=== PATIENT | male | born 1960 | race Caucasian/White ===

== ENCOUNTER 2021-05-04 03:29 | Emergency (ER) | payer OTHER ==
[~2021-05-04] VITALS: Ht 172.7 cm; Wt 86.2 kg
[~2021-05-04 03:29] MED LIST: AMIT25; AMOCLA875 PO; ARIP10 PO; BENZ2; CYCL10; CYCL10 PO; DOXY100; DULO30; Flonase 0.05% N16 GM; HYDACE10B; KETO10 PO; MAGCIT300 PO; METH10; OXYACE5T PO; OXYC10ER; OXYC10ER PO; OXYC20ER; OXYC20ER PO; PARO25; Prednisone10 MG PO; Pseudoephedrine30 MG PO; QUET100; QUET200; QUET200 PO; SENNP PO; VALD10
== END 2021-05-04 05:03 | disposition home or self-care (01) ==
LOC: ER 03:29
DX: H16.8 Other keratitis (principal); F17.200 Nicotine dependence, unspecified, uncomplicated; Z88.8 Allergy status to other drugs, medicaments and biological substances; Z88.1 Allergy status to other antibiotic agents; Z88.5 Allergy status to narcotic agent
CPT/HCPCS: 99283; A9270

== ENCOUNTER 2021-06-04 19:42 | Inpatient (IN) | payer OTHER ==
[~2021-06-04] VITALS: Ht 172.7 cm; Wt 79.7 kg
[2021-06-04 20:36] LABS: BASOPHILS ABSOLUTE AUTO 0.04 K/mm3 (0.00-0.23); BASOPHILS PERCENT AUTO 1 % (0-2); EOSINOPHILS ABSOLUTE AUTO 0.29 K/mm3 (0.00-0.68); EOSINOPHILS PERCENT AUTO 3 % (0-6); Hematocrit 43.2 % (37.0-53.0); Hemoglobin 14.9 g/dL (13.5-17.5); IMMATURE GRAN ABSOLUTE AUTO 0.02 K/mm3 (0.00-0.10); IMMATURE GRAN PERCENT AUTO 0 % (0-1); LYMPHOCYTES ABSOLUTE AUTO 2.35 K/mm3 (0.84-5.20); LYMPHOCYTES PERCENT AUTO 28 % (21-46); MONOCYTES ABSOLUTE AUTO 0.81 K/mm3 (0.16-1.47); MONOCYTES PERCENT AUTO 10 % (4-13); Mean Corpuscular HGB Conc 34.5 g/dL (31.5-36.5); Mean Corpuscular Volume 96 fL (80-100); Mean Platelet Volume 8.5 fL (9.1-12.4); NEUTROPHILS PERCENT AUTO 58 % (41-73); Platelet Count 253 K/mm3 (150-400); RDW Coefficient Variation 12.6 % (11.7-14.2); RDW Standard Deviation 45.2 fL (35.1-46.3); Red Blood Cell Count 4.52 M/mm3 (4.30-5.90); White Blood Cell Count 8.41 K/mm3 (4.00-11.30)
[2021-06-04 20:53] LABS: Alanine Aminotransfer (ALT/SGP 32 U/L (12-78); Albumin, Blood 3.7 g/dL (3.4-5.0); Albumin/Globulin Ratio 1.1 (0.8-1.8); Alk Phos 102 U/L (50-136); Anion Gap 5 mmol/L (6-16); Aspartate Aminotrans (AST/SGOT 29 U/L (12-37); Bilirubin, Total 0.9 mg/dL (0.1-1.0); Blood Urea Nitrogen 14 mg/dL (8-24); Bun/Creatinine Ratio 17.7 (12.0-20.0); CO2, Blood 26 mmol/L (21-32); Calcium, Blood 8.9 mg/dL (8.5-10.1); Chloride, Blood 108 mmol/L (98-108); Creatinine, Blood 0.79 mg/dL (0.60-1.20); Globulin, Blood 3.5 g/dL (2.2-4.0); Glomerular Filtration Rate >60 (60-); Glucose, Blood 91 mg/dL (70-99); Potassium, Blood 3.7 mmol/L (3.5-5.5); Sodium, Blood 139 mmol/L (136-145); Total Protein, Blood 7.2 g/dL (6.4-8.2)
[2021-06-05 06:14] LABS: SARS-Cov-2 (COVID-19) PCR, MMC NEGATIVE (NEGATIVE)
--- NOTE | 2021-06-05 06:21 | NUR ---
PT ARRIVED TO UNIT AT 0115. PT IS A/OX3. ABLE TO MAKE HIS NEEDS KNOWN. ORIENTED TO ROOM, CALL LIGHT, TV, NPO STATUS. 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 PER PT, HE WAS SEEN AT AN URGENT CARE TODAY AND WAS TOLD TO BE EVALUATED AT ED FOR INFECTION TO RT FOOT. HERE FOR OSTEOMYELITIS TO RIGHT FOOT/RT GRT TOE. RT FOOT IS RED, SWOLLEN, WARM TO TOUCH. 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 TOLERATING IV ABX WELL. USES URINAL. REPORTS LAST BM WAS 06/04/21. DENIED ANY N/V. BT'S POS. IS A SMOKER, REPORTS LAST CIGAR WAS AROUND 1930 ON 06/04/21. DOES NOT WANT NICOTINE PATCH. COVID NEG, VACCINATED APPROX 2 MO AGO. HAS APPT WITH FINANCIAL SALES CONSULTANT AND PSYCH EITHER 06/06 OR 06/07. PT SAYS HE WILL CALL BOTH PROVIDER OFFICES TO INFORM HE IS INPATIENT.
[2021-06-05 08:32] LABS: BASOPHILS ABSOLUTE AUTO 0.05 K/mm3 (0.00-0.23); BASOPHILS PERCENT AUTO 1 % (0-2); EOSINOPHILS ABSOLUTE AUTO 0.33 K/mm3 (0.00-0.68); EOSINOPHILS PERCENT AUTO 5 % (0-6); Hematocrit 42.4 % (37.0-53.0); Hemoglobin 14.5 g/dL (13.5-17.5); IMMATURE GRAN ABSOLUTE AUTO 0.01 K/mm3 (0.00-0.10); IMMATURE GRAN PERCENT AUTO 0 % (0-1); LYMPHOCYTES ABSOLUTE AUTO 1.67 K/mm3 (0.84-5.20); LYMPHOCYTES PERCENT AUTO 26 % (21-46); MONOCYTES ABSOLUTE AUTO 0.79 K/mm3 (0.16-1.47); MONOCYTES PERCENT AUTO 12 % (4-13); Mean Corpuscular HGB 32.9 pg (26.0-34.0); Mean Corpuscular HGB Conc 34.2 g/dL (31.5-36.5); Mean Corpuscular Volume 96 fL (80-100); Mean Platelet Volume 8.9 fL (9.1-12.4); NEUTROPHILS PERCENT AUTO 56 % (41-73); Platelet Count 242 K/mm3 (150-400); RDW Coefficient Variation 12.6 % (11.7-14.2); RDW Standard Deviation 45.3 fL (35.1-46.3); Red Blood Cell Count 4.41 M/mm3 (4.30-5.90); White Blood Cell Count 6.45 K/mm3 (4.00-11.30)
[2021-06-05 09:00] LABS: Alanine Aminotransfer (ALT/SGP 25 U/L (12-78); Albumin, Blood 2.9 g/dL (3.4-5.0); Albumin/Globulin Ratio 0.9 (0.8-1.8); Alk Phos 92 U/L (50-136); Anion Gap 3 mmol/L (6-16); Aspartate Aminotrans (AST/SGOT 23 U/L (12-37); Bilirubin, Total 1.1 mg/dL (0.1-1.0); Blood Urea Nitrogen 12 mg/dL (8-24); CO2, Blood 26 mmol/L (21-32); Calcium, Blood 8.3 mg/dL (8.5-10.1); Chloride, Blood 110 mmol/L (98-108); Creatinine, Blood 0.86 mg/dL (0.60-1.20); Globulin, Blood 3.3 g/dL (2.2-4.0); Glomerular Filtration Rate >60 (60-); Glucose, Blood 94 mg/dL (70-99); Potassium, Blood 3.8 mmol/L (3.5-5.5); Sodium, Blood 139 mmol/L (136-145); Total Protein, Blood 6.2 g/dL (6.4-8.2)
--- NOTE | 2021-06-05 10:12 | NUR ---
DR. SCHMITZ ROUNDED ON PT, RECOMMENDED DR. ARAGON CONSULT. CONSULT CALLED TO DR. ARAGON'S ANSWERING MACHINE. DRESSING PLACED OVER RIGHT GREAT TOE SURGICAL SITE. WILL AWAIT RECOMMENDATION FROM DR. ARAGON. WILL CONTINUE TO MONITOR.
[2021-06-05] MEDS ORDERED: MELO7.5 PO (10:29)
[2021-06-05] MEDS ORDERED: TRAM50 PO (10:32)
[2021-06-05] MEDS ORDERED: Prozac20 MG PO (10:33)
[2021-06-05] MEDS ORDERED: Prozac40 MG PO (16:41)
--- NOTE | 2021-06-05 18:04 | NUR ---
DISCHARGE PT PROVIDED WITH WRITTEN AND VERBAL DISCHARGE INSTRUCTIONS, HE REPORTED UNDERSTANDING. 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 BOYER DECIDES PT NEEDS TO HAVE SURGERY. PT ALSO EDUCATED TO REST AND ELEVATE HIS RLE AND TO AVOID ACTIVITIES SUCH WORKING IN HIS SHOP. PT REPORTED UNDERSTANDING. PT ARRANGED RIDE HOME WITH TAXI. PT ESCORTED OUT IN W/C.
== END 2021-06-05 17:30 | disposition home or self-care (01) | DRG 540 ==
LOC: ER 19:42 → SURS 23:29 → ER 06-05 01:22 → SURS 06-05 01:25
PROVIDERS: Emergency Medicine; ADMIT Internal Medicine
DX: M86.171 Other acute osteomyelitis, right ankle and foot (principal); L03.115 Cellulitis of right lower limb; Z20.822 Contact with and (suspected) exposure to COVID-19; Z23 Encounter for immunization; F31.9 Bipolar disorder, unspecified; F41.9 Anxiety disorder, unspecified; G47.00 Insomnia, unspecified; F25.9 Schizoaffective disorder, unspecified; Z89.421 Acquired absence of other right toe(s); Z88.5 Allergy status to narcotic agent; Z88.6 Allergy status to analgesic agent; Z88.8 Allergy status to other drugs, medicaments and biological substances; Z98.890 Other specified postprocedural states; Z79.891 Long term (current) use of opiate analgesic; Z79.899 Other long term (current) drug therapy
CPT/HCPCS: 36415; 73630; 73701; 80053; 85025; 85651; 86140; 87070; 87075; 87077; 87186; 87205; 90686; 96365; 99285-25; A9270; J2543; J3370; J7030; J7050; Q9967; U0004

== ENCOUNTER → 2021-06-06 | Outpatient (CLI) | payer OTHER ==
[~2021-06-06] MED LIST changes: +MELO7.5 PO; +Prozac20 MG PO; +Prozac40 MG PO; +TRAM50 PO
== END ==
LOC: LAB SHORT 11:56
DX: Z48.89 Encounter for other specified surgical aftercare (principal); L03.119 Cellulitis of unspecified part of limb; L08.9 Local infection of the skin and subcutaneous tissue, unspecified
CPT/HCPCS: 87070; 87075; 87205

== ENCOUNTER → 2021-11-11 | Outpatient (CLI) | payer OTHER ==
[2021-11-11 10:06] LABS: BASOPHILS ABSOLUTE AUTO 0.06 K/mm3 (0.00-0.23); BASOPHILS PERCENT AUTO 1 % (0-2); EOSINOPHILS ABSOLUTE AUTO 0.51 K/mm3 (0.00-0.68); EOSINOPHILS PERCENT AUTO 8 % (0-6); Hematocrit 43.7 % (37.0-53.0); Hemoglobin 14.8 g/dL (13.5-17.5); IMMATURE GRAN ABSOLUTE AUTO 0.01 K/mm3 (0.00-0.10); IMMATURE GRAN PERCENT AUTO 0 % (0-1); LYMPHOCYTES ABSOLUTE AUTO 1.69 K/mm3 (0.84-5.20); LYMPHOCYTES PERCENT AUTO 28 % (21-46); MONOCYTES ABSOLUTE AUTO 0.77 K/mm3 (0.16-1.47); MONOCYTES PERCENT AUTO 13 % (4-13); Mean Corpuscular HGB 32.6 pg (26.0-34.0); Mean Corpuscular HGB Conc 33.9 g/dL (31.5-36.5); Mean Corpuscular Volume 96 fL (80-100); Mean Platelet Volume 8.7 fL (9.1-12.4); NEUTROPHILS ABSOLUTE AUTO 3.07 K/mm3 (1.96-9.15); NEUTROPHILS PERCENT AUTO 50 % (41-73); Platelet Count 221 K/mm3 (150-400); RDW Coefficient Variation 12.9 % (11.7-14.2); RDW Standard Deviation 45.7 fL (35.1-46.3); Red Blood Cell Count 4.54 M/mm3 (4.30-5.90); White Blood Cell Count 6.11 K/mm3 (4.00-11.30)
[2021-11-11 10:21] LABS: Alanine Aminotransfer (ALT/SGP 21 U/L (12-78); Albumin, Blood 3.4 g/dL (3.4-5.0); Albumin/Globulin Ratio 1.1 (0.8-1.8); Alk Phos 92 U/L (40-126); Anion Gap Unable to Calculate mmol/L (6-16); Aspartate Aminotrans (AST/SGOT 11 U/L (12-37); Bilirubin, Total 0.3 mg/dL (0.1-1.0); Blood Urea Nitrogen 18 mg/dL (8-24); Bun/Creatinine Ratio 18.6 (12.0-20.0); CO2, Blood 26 mmol/L (21-32); Calcium, Blood 8.4 mg/dL (8.5-10.1); Chloride, Blood 100 mmol/L (98-108); Creatinine, Blood 0.97 mg/dL (0.60-1.20); Globulin, Blood 3.1 g/dL (2.2-4.0); Glomerular Filtration Rate >60 (60-); Glucose, Blood 129 mg/dL (70-99); Potassium, Blood 3.4 mmol/L (3.5-5.5); Sodium, Blood 120 mmol/L (136-145); Total Protein, Blood 6.5 g/dL (6.4-8.2)
[2021-11-13 16:11] LABS: ANTI-CENTROMERE B ANTIBODIES <0.2 AI (0.0-0.9); ANTI-DNA (DS) AB QN <1 IU/mL (0-9); ANTI-JO-1 <0.2 AI (0.0-0.9); ANTICHROMATIN ANTIBODIES <0.2 AI (0.0-0.9); ANTISCLERODERMA-70 ANTIBODIES <0.2 AI (0.0-0.9); RNP ANTIBODIES 0.8 AI (0.0-0.9); SJOGREN'S ANTI-SS-A <0.2 AI (0.0-0.9); SJOGREN'S ANTI-SS-B <0.2 AI (0.0-0.9); SMITH ANTIBODIES <0.2 AI (0.0-0.9)
== END ==
LOC: LAB EV 10:00 → LAB SHORT 10:00
PROVIDERS: General Practice
DX: R20.2 Paresthesia of skin (principal); Z79.899 Other long term (current) drug therapy
CPT/HCPCS: 80053; 82607; 82746; 83036; 85025; 85651

== ENCOUNTER 2022-01-06 06:14 | Emergency (ER) | payer OTHER ==
[~2022-01-06] VITALS: Ht 172.7 cm; Wt 86.2 kg
[2022-01-06] MEDS ORDERED: NEURONTIN300 MG PO (06:38)
== END 2022-01-06 08:09 | disposition home or self-care (01) ==
LOC: ER 06:14
DX: M54.12 Radiculopathy, cervical region (principal); Z87.891 Personal history of nicotine dependence; Z79.899 Other long term (current) drug therapy
CPT/HCPCS: 99283

== ENCOUNTER 2022-01-21 02:35 | Emergency (ER) | payer OTHER ==
[~2022-01-21] VITALS: Ht 172.7 cm; Wt 86.2 kg
[~2022-01-21 02:35] MED LIST changes: +NEURONTIN300 MG PO
== END 2022-01-21 04:39 | disposition home or self-care (01) ==
LOC: ER 02:35
DX: R20.0 Anesthesia of skin (principal); F41.9 Anxiety disorder, unspecified; F17.200 Nicotine dependence, unspecified, uncomplicated; Z88.5 Allergy status to narcotic agent; Z88.0 Allergy status to penicillin; Z88.8 Allergy status to other drugs, medicaments and biological substances; Z79.899 Other long term (current) drug therapy
CPT/HCPCS: J1100; J1885

== ENCOUNTER 2022-01-24 04:27 | Emergency (ER) | payer OTHER ==
[~2022-01-24] VITALS: Ht 172.7 cm; Wt 81.7 kg
== END 2022-01-24 05:43 | disposition home or self-care (01) ==
LOC: ER 04:27
DX: S60.458A Superficial foreign body of other finger, initial encounter (principal); F17.200 Nicotine dependence, unspecified, uncomplicated; W45.8XXA Other foreign body or object entering through skin, initial encounter; Z88.0 Allergy status to penicillin; Z88.5 Allergy status to narcotic agent; Z88.8 Allergy status to other drugs, medicaments and biological substances; Z79.899 Other long term (current) drug therapy
CPT/HCPCS: 99283

== ENCOUNTER 2022-02-09 19:34 | Emergency (ER) | payer OTHER ==
[~2022-02-09] VITALS: Ht 172.7 cm; Wt 81.7 kg
== END 2022-02-09 19:56 | disposition home or self-care (01) ==
LOC: ER 19:34
DX: Z76.0 Encounter for issue of repeat prescription (principal); G56.00 Carpal tunnel syndrome, unspecified upper limb; F17.200 Nicotine dependence, unspecified, uncomplicated; Z79.899 Other long term (current) drug therapy; Z88.5 Allergy status to narcotic agent; Z88.0 Allergy status to penicillin; Z88.8 Allergy status to other drugs, medicaments and biological substances
CPT/HCPCS: J1885

== ENCOUNTER 2022-02-20 19:12 | Emergency (ER) | payer OTHER ==
[~2022-02-20] VITALS: Ht 172.7 cm; Wt 77.1 kg
[2022-02-21] MEDS ORDERED: HYDR1TAB94 PO (05:46)
== END 2022-02-20 21:52 | disposition home or self-care (01) ==
LOC: ER 19:12
DX: H57.13 Ocular pain, bilateral (principal); Z79.899 Other long term (current) drug therapy; Z53.21 Procedure and treatment not carried out due to patient leaving prior to being seen by health care provider
CPT/HCPCS: 99281

== ENCOUNTER 2022-02-21 04:22 | Emergency (ER) | payer OTHER ==
[~2022-02-21] VITALS: Ht 172.7 cm; Wt 81.7 kg
[2022-02-21] MEDS ORDERED: HYDR1TAB94 PO (05:46)
== END 2022-02-21 06:45 | disposition home or self-care (01) ==
LOC: ER 04:22
DX: S70.02XA Contusion of left hip, initial encounter (principal); F17.290 Nicotine dependence, other tobacco product, uncomplicated; W23.0XXA Caught, crushed, jammed, or pinched between moving objects, initial encounter
CPT/HCPCS: 99283; A9270

== ENCOUNTER 2022-03-11 21:29 | Emergency (ER) | payer OTHER ==
[~2022-03-11] VITALS: Ht 172.7 cm; Wt 81.7 kg
[~2022-03-11 21:29] MED LIST changes: +HYDR1TAB94 PO
== END 2022-03-12 03:42 | disposition home or self-care (01) ==
LOC: ER 21:29
DX: R07.9 Chest pain, unspecified (principal); M79.673 Pain in unspecified foot; F17.210 Nicotine dependence, cigarettes, uncomplicated; Z88.5 Allergy status to narcotic agent; Z88.0 Allergy status to penicillin; Z88.8 Allergy status to other drugs, medicaments and biological substances
CPT/HCPCS: 93005; 93010; 99282-25

== ENCOUNTER 2022-03-15 00:35 | Emergency (ER) | payer OTHER ==
[~2022-03-15] VITALS: Ht 172.7 cm; Wt 81.7 kg
[2022-03-15] MEDS ORDERED: IBUP600 PO (06:20)
== END 2022-03-15 06:37 | disposition home or self-care (01) ==
LOC: ER 00:35
DX: M79.18 Myalgia, other site (principal); F17.290 Nicotine dependence, other tobacco product, uncomplicated; Z88.0 Allergy status to penicillin; Z88.5 Allergy status to narcotic agent; Z88.8 Allergy status to other drugs, medicaments and biological substances
CPT/HCPCS: A9270

== ENCOUNTER 2022-03-18 08:15 | Emergency (ER) | payer OTHER ==
[~2022-03-18] VITALS: Ht 172.7 cm; Wt 74.8 kg
[~2022-03-18 08:15] MED LIST changes: +IBUP600 PO
[2022-03-18] MEDS ORDERED: Neurontin 100100 MG PO (09:13)
== END 2022-03-18 09:56 | disposition home or self-care (01) ==
LOC: ER 08:15
DX: B35.3 Tinea pedis (principal); L03.115 Cellulitis of right lower limb; F17.290 Nicotine dependence, other tobacco product, uncomplicated; Z88.0 Allergy status to penicillin; Z88.5 Allergy status to narcotic agent; Z88.8 Allergy status to other drugs, medicaments and biological substances; Z59.00 Homelessness unspecified
CPT/HCPCS: 99282

== ENCOUNTER 2022-03-25 10:15 | Emergency (ER) | payer OTHER ==
[~2022-03-25 10:15] MED LIST changes: +Neurontin 100100 MG PO
[2022-03-26] MEDS ORDERED: CYCL10 PO (06:00)
== END 2022-03-25 11:04 | disposition left against medical advice (07) ==
LOC: ER 10:15
DX: Z53.21 Procedure and treatment not carried out due to patient leaving prior to being seen by health care provider (principal)

== ENCOUNTER 2022-03-26 03:07 | Emergency (ER) | payer OTHER ==
[~2022-03-26] VITALS: Ht 172.7 cm; Wt 81.7 kg
[2022-03-26] MEDS ORDERED: CYCL10 PO (06:00)
== END 2022-03-26 06:00 | disposition home or self-care (01) ==
LOC: ER 03:07
DX: M25.511 Pain in right shoulder (principal); X58.XXXA Exposure to other specified factors, initial encounter; F17.210 Nicotine dependence, cigarettes, uncomplicated
CPT/HCPCS: 73030; A9270

== ENCOUNTER 2022-04-03 02:56 | Emergency (ER) | payer OTHER ==
[~2022-04-03] VITALS: Ht 172.7 cm; Wt 81.7 kg
== END 2022-04-03 04:38 | disposition home or self-care (01) ==
LOC: ER 02:56
DX: S16.1XXA Strain of muscle, fascia and tendon at neck level, initial encounter (principal); X58.XXXA Exposure to other specified factors, initial encounter; G56.01 Carpal tunnel syndrome, right upper limb; F17.210 Nicotine dependence, cigarettes, uncomplicated; Z88.0 Allergy status to penicillin; Z88.5 Allergy status to narcotic agent; Z88.8 Allergy status to other drugs, medicaments and biological substances; Z79.899 Other long term (current) drug therapy
CPT/HCPCS: A9270

== ENCOUNTER 2022-06-13 07:40 | Day surgery (SDC) | payer OTHER ==
[~2022-06-13] VITALS: Ht 172.7 cm; Wt 71.3 kg
--- NOTE | 2022-06-13 09:16 | NUR ---
06/13/22 0916 Yolanda Figueroa PT GIVEN RELAXING MEDICATION PER DR. SAGASTUME. VS STABLE THROUGHOUT. PT TOLERATED WELL.
--- NOTE | 2022-06-13 12:28 | NUR ---
06/13/22 1228 Nathan Roberson PT WAS REPEATEDLY INSTRUCTED NO TO BEAR WEIGHT WITH OPERATIVE WRIST, YET HE WAS OBSERVED SEVERAL TIMES BEARING WIEGHT WITH OPERATIVE WRIST.
== END 2022-06-13 10:20 | disposition home or self-care (01) ==
LOC: ORSCSDS 07:40
PROVIDERS: Orthopaedic Surgery
PROC: 01N50ZZ Release Median Nerve, Open Approach (ICD-10-PCS; principal; 2022-06-13 09:00)
DX: G56.03 Carpal tunnel syndrome, bilateral upper limbs (principal); K21.9 Gastro-esophageal reflux disease without esophagitis; J45.909 Unspecified asthma, uncomplicated; J44.9 Chronic obstructive pulmonary disease, unspecified; Z87.891 Personal history of nicotine dependence
CPT/HCPCS: J2250; J3010; J7040; J7120

== ENCOUNTER 2022-09-07 01:12 | Emergency (ER) | payer OTHER ==
[~2022-09-07] VITALS: Ht 170.2 cm; Wt 65.8 kg
[2022-09-07] MEDS ORDERED: POLYTRIM EYE DR10 M1 BOTHEYES (01:30)
== END 2022-09-07 02:21 | disposition home or self-care (01) ==
LOC: ER 01:12
DX: H10.9 Unspecified conjunctivitis (principal); F17.290 Nicotine dependence, other tobacco product, uncomplicated; Z88.0 Allergy status to penicillin; Z88.5 Allergy status to narcotic agent; Z88.8 Allergy status to other drugs, medicaments and biological substances
CPT/HCPCS: A9270

== ENCOUNTER 2022-09-08 20:23 | Emergency (ER) | payer OTHER ==
[~2022-09-08] VITALS: Ht 172.7 cm; Wt 77.1 kg
[~2022-09-08 20:23] MED LIST changes: +POLYTRIM EYE DR10 M1 BOTHEYES
== END 2022-09-08 22:18 | disposition home or self-care (01) ==
LOC: ER 20:23
DX: S80.01XA Contusion of right knee, initial encounter (principal); S83.91XA Sprain of unspecified site of right knee, initial encounter; W51.XXXA Accidental striking against or bumped into by another person, initial encounter; F17.210 Nicotine dependence, cigarettes, uncomplicated; Z88.0 Allergy status to penicillin; Z88.5 Allergy status to narcotic agent; Z88.8 Allergy status to other drugs, medicaments and biological substances; Z79.899 Other long term (current) drug therapy
CPT/HCPCS: 73562-RT; J1885

== ENCOUNTER 2022-09-21 05:50 | Emergency (ER) | payer OTHER ==
[~2022-09-21] VITALS: Ht 182.9 cm; Wt 61.2 kg
[~2022-09-21 05:50] MED LIST changes: +LIDO700A20 TOP
[2022-09-21] MEDS ORDERED: METPRE4DP PO (06:32)
== END 2022-09-21 06:41 | disposition home or self-care (01) ==
LOC: ER 05:50
DX: M54.12 Radiculopathy, cervical region (principal)
CPT/HCPCS: J1885; J7512

== ENCOUNTER 2022-10-12 13:16 | Emergency (ER) | payer OTHER ==
[~2022-10-12] VITALS: Ht 172.7 cm; Wt 77.1 kg
[~2022-10-12 13:16] MED LIST changes: +METPRE4DP PO
[2022-10-12] MEDS ORDERED: CYCL10 PO (14:08)
== END 2022-10-12 14:08 | disposition home or self-care (01) ==
LOC: ER 13:16
DX: Z76.0 Encounter for issue of repeat prescription (principal); F17.210 Nicotine dependence, cigarettes, uncomplicated; Z88.1 Allergy status to other antibiotic agents; Z88.5 Allergy status to narcotic agent; Z88.8 Allergy status to other drugs, medicaments and biological substances; Z79.899 Other long term (current) drug therapy
CPT/HCPCS: 99281

== ENCOUNTER 2022-10-25 08:31 | Emergency (ER) | payer OTHER ==
[~2022-10-25] VITALS: Ht 172.7 cm; Wt 76.5 kg
== END 2022-10-25 10:03 | disposition home or self-care (01) ==
LOC: ER 08:31
DX: S60.422A Blister (nonthermal) of right middle finger, initial encounter (principal); W22.8XXA Striking against or struck by other objects, initial encounter; F17.210 Nicotine dependence, cigarettes, uncomplicated; Z88.0 Allergy status to penicillin; Z88.5 Allergy status to narcotic agent; Z88.8 Allergy status to other drugs, medicaments and biological substances; Z79.899 Other long term (current) drug therapy
CPT/HCPCS: 99283

== ENCOUNTER 2022-11-01 18:49 | Emergency (ER) | payer OTHER ==
[~2022-11-01] VITALS: Ht 177.8 cm; Wt 81.7 kg
[2022-11-04] MEDS ORDERED: ACET500 PO (06:33)
[2022-11-04] MEDS ORDERED: MORP15ER PO (06:33)
[2022-11-04] MEDS ORDERED: IBUP400 PO (06:33)
== END 2022-11-01 19:15 | disposition home or self-care (01) ==
LOC: ER 18:49
DX: R53.83 Other fatigue (principal); F17.290 Nicotine dependence, other tobacco product, uncomplicated; Z88.0 Allergy status to penicillin; Z88.5 Allergy status to narcotic agent; Z88.8 Allergy status to other drugs, medicaments and biological substances
CPT/HCPCS: 99281

== ENCOUNTER 2022-11-11 02:44 | Emergency (ER) | payer OTHER ==
[~2022-11-11] VITALS: Ht 172.7 cm; Wt 74.8 kg
[~2022-11-11 02:44] MED LIST changes: +ACET500 PO; +IBUP400 PO; +MORP15ER PO
[2022-11-11] MEDS ORDERED: IBUP400 PO (03:07)
== END 2022-11-11 05:45 | disposition home or self-care (01) ==
LOC: ER 02:44
DX: T23.021D Burn of unspecified degree of single right finger (nail) except thumb, subsequent encounter (principal); F17.290 Nicotine dependence, other tobacco product, uncomplicated; X08.8XXD Exposure to other specified smoke, fire and flames, subsequent encounter
CPT/HCPCS: A9270

== ENCOUNTER 2022-11-12 14:43 | Emergency (ER) | payer OTHER ==
[~2022-11-12] VITALS: Ht 172.7 cm; Wt 79.4 kg
== END 2022-11-12 16:06 | disposition home or self-care (01) ==
LOC: ER 14:43
DX: B35.3 Tinea pedis (principal); M54.50 Low back pain, unspecified; F17.210 Nicotine dependence, cigarettes, uncomplicated; Z59.00 Homelessness unspecified; Z88.5 Allergy status to narcotic agent; Z88.0 Allergy status to penicillin; Z88.8 Allergy status to other drugs, medicaments and biological substances; Z79.899 Other long term (current) drug therapy
CPT/HCPCS: 99282

== ENCOUNTER 2022-11-29 05:33 | Emergency (ER) | payer OTHER ==
[~2022-11-29] VITALS: Ht 177.8 cm; Wt 77.1 kg
[2022-11-29] MEDS ORDERED: IBUP100S PO (05:57)
== END 2022-11-29 07:02 | disposition home or self-care (01) ==
LOC: ER 05:33
DX: T23.021D Burn of unspecified degree of single right finger (nail) except thumb, subsequent encounter (principal); F20.9 Schizophrenia, unspecified; F17.210 Nicotine dependence, cigarettes, uncomplicated; Z88.0 Allergy status to penicillin; Z88.8 Allergy status to other drugs, medicaments and biological substances; Z88.1 Allergy status to other antibiotic agents; Z88.5 Allergy status to narcotic agent
CPT/HCPCS: 99282

== ENCOUNTER 2022-12-03 01:16 | Emergency (ER) | payer OTHER ==
[~2022-12-03] VITALS: Ht 172.7 cm; Wt 77.1 kg
[~2022-12-03 01:16] MED LIST changes: +IBUP100S PO
[2022-12-03] MEDS ORDERED: ACET500 PO ×2 (02:23→02:24)
[2022-12-03] MEDS ORDERED: IBUP400 PO ×2 (02:23→02:24)
== END 2022-12-03 02:40 | disposition home or self-care (01) ==
LOC: ER 01:16
DX: T23.021D Burn of unspecified degree of single right finger (nail) except thumb, subsequent encounter (principal); X08.8XXD Exposure to other specified smoke, fire and flames, subsequent encounter; F17.210 Nicotine dependence, cigarettes, uncomplicated; Z88.0 Allergy status to penicillin; Z88.5 Allergy status to narcotic agent; Z88.8 Allergy status to other drugs, medicaments and biological substances; Z79.899 Other long term (current) drug therapy; Z59.00 Homelessness unspecified
CPT/HCPCS: 99281

== ENCOUNTER 2022-12-04 11:52 | Day surgery (SDC) | payer OTHER | END 2022-12-04 22:59 | disposition home or self-care (01) | LOC: WOUND 11:52 | DX: T23.221A Burn of second degree of single right finger (nail) except thumb, initial encounter (principal); Z72.0 Tobacco use | CPT/HCPCS: 99406 ==

== ENCOUNTER 2023-01-25 16:26 | Emergency (ER) | payer OTHER ==
[~2023-01-25] VITALS: Ht 172.7 cm; Wt 74.8 kg
[2023-01-25 16:36] VITALS: BP 98/68
[2023-01-25] MEDS ORDERED: CORTISONE60 GM TOP (16:37)
== END 2023-01-25 17:12 | disposition home or self-care (01) ==
LOC: ER 16:26
DX: L23.7 Allergic contact dermatitis due to plants, except food (principal); Z88.0 Allergy status to penicillin; Z88.1 Allergy status to other antibiotic agents; Z88.5 Allergy status to narcotic agent; Z88.8 Allergy status to other drugs, medicaments and biological substances; Z79.899 Other long term (current) drug therapy; F17.210 Nicotine dependence, cigarettes, uncomplicated
CPT/HCPCS: 96372; 99283-25; J3301

== ENCOUNTER 2023-03-11 04:28 | Emergency (ER) | payer OTHER ==
[~2023-03-11] VITALS: Ht 172.7 cm; Wt 67.1 kg
[~2023-03-11 04:28] MED LIST changes: +CORTISONE60 GM TOP
[2023-03-11 04:56] VITALS: BP 124/79
[2023-03-11] MEDS ORDERED: SULTRIDS PO (18:17)
[2023-03-11] MEDS ORDERED: Cleocin HCl150 MG PO (18:17)
== END 2023-03-11 05:21 | disposition home or self-care (01) ==
LOC: ER 04:28
DX: S00.81XA Abrasion of other part of head, initial encounter (principal); S80.212A Abrasion, left knee, initial encounter; F17.290 Nicotine dependence, other tobacco product, uncomplicated; Z88.0 Allergy status to penicillin; Z88.3 Allergy status to other anti-infective agents; Z88.8 Allergy status to other drugs, medicaments and biological substances; Z88.5 Allergy status to narcotic agent; W01.10XA Fall on same level from slipping, tripping and stumbling with subsequent striking against unspecified object, initial encounter; L03.113 Cellulitis of right upper limb; Z88.1 Allergy status to other antibiotic agents; G47.00 Insomnia, unspecified
CPT/HCPCS: 93971; 99283; 99284-25; A9270

== ENCOUNTER 2023-03-11 16:35 | Emergency (ER) | payer OTHER ==
[~2023-03-11] VITALS: Ht 177.8 cm; Wt 72.6 kg
[2023-03-11 16:40] VITALS: BP 123/73
[2023-03-11] MEDS ORDERED: Cleocin HCl150 MG PO (18:17)
[2023-03-11] MEDS ORDERED: SULTRIDS PO (18:17)
== END 2023-03-11 18:45 | disposition home or self-care (01) ==
LOC: ER 16:35
DX: L03.113 Cellulitis of right upper limb (principal); Z88.0 Allergy status to penicillin; Z88.8 Allergy status to other drugs, medicaments and biological substances; Z88.5 Allergy status to narcotic agent; Z88.1 Allergy status to other antibiotic agents; G47.00 Insomnia, unspecified; F17.290 Nicotine dependence, other tobacco product, uncomplicated
CPT/HCPCS: 93971; 99284-25; A9270

== ENCOUNTER 2023-07-17 13:47 | Emergency (ER) | payer OTHER ==
[~2023-07-17] VITALS: Ht 172.7 cm; Wt 63.5 kg
[~2023-07-17 13:47] MED LIST changes: +Cleocin HCl150 MG PO; +SULTRIDS PO
[2023-07-17 14:30] VITALS: BP 117/77
== END 2023-07-17 16:37 | disposition home or self-care (01) ==
LOC: ER 13:47
DX: R05.9 Cough, unspecified (principal); Z88.0 Allergy status to penicillin; Z88.8 Allergy status to other drugs, medicaments and biological substances; Z88.1 Allergy status to other antibiotic agents; Z88.5 Allergy status to narcotic agent; G47.00 Insomnia, unspecified; F17.290 Nicotine dependence, other tobacco product, uncomplicated
CPT/HCPCS: 96372; 99283-25; A9270; J1885

== ENCOUNTER 2023-07-19 13:23 | Emergency (ER) | payer OTHER ==
[~2023-07-19] VITALS: Ht 172.7 cm; Wt 63.5 kg
[2023-07-19 13:52] VITALS: BP 129/72
[2023-07-19 16:48] LABS: BASOPHILS ABSOLUTE AUTO 0.02 K/mm3 (0.00-0.23); BASOPHILS PERCENT AUTO 0 % (0-2); EOSINOPHILS PERCENT AUTO 0 % (0-6); Hematocrit 40.3 % (37.0-53.0); Hemoglobin 13.5 g/dL (13.5-17.5); IMMATURE GRAN ABSOLUTE AUTO 0.05 K/mm3 (0.00-0.10); IMMATURE GRAN PERCENT AUTO 1 % (0-1); LYMPHOCYTES ABSOLUTE AUTO 0.77 K/mm3 (0.84-5.20); LYMPHOCYTES PERCENT AUTO 7 % (21-46); MONOCYTES ABSOLUTE AUTO 1.11 K/mm3 (0.16-1.47); MONOCYTES PERCENT AUTO 11 % (4-13); Mean Corpuscular HGB 33.2 pg (26.0-34.0); Mean Corpuscular HGB Conc 33.5 g/dL (31.5-36.5); Mean Corpuscular Volume 99 fL (80-100); Mean Platelet Volume 9.2 fL (9.1-12.4); NEUTROPHILS ABSOLUTE AUTO 8.46 K/mm3 (1.96-9.15); NEUTROPHILS PERCENT AUTO 81 % (41-73); Platelet Count 213 K/mm3 (150-400); RDW Standard Deviation 46.8 fL (35.1-46.3); Red Blood Cell Count 4.07 M/mm3 (4.30-5.90); White Blood Cell Count 10.41 K/mm3 (4.00-11.30)
[2023-07-19 17:06] LABS: Albumin, Blood 3.2 g/dL (3.4-5.0); Albumin/Globulin Ratio 0.8 (0.8-1.8); Bilirubin, Total 0.9 mg/dL (0.1-1.0); Bun/Creatinine Ratio 14.3 (12.0-20.0); Calcium, Blood 8.5 mg/dL (8.5-10.1); Creatinine, Blood 0.84 mg/dL (0.60-1.20); Globulin, Blood 4.1 g/dL (2.2-4.0); Potassium, Blood 4.3 mmol/L (3.5-5.5); Total Protein, Blood 7.3 g/dL (6.4-8.2)
[2023-07-19] MEDS ORDERED: ONDA4 PO (17:51)
[2023-07-19] MEDS ORDERED: Avidoxy100 MG PO (17:51)
== END 2023-07-19 18:49 | disposition home or self-care (01) ==
LOC: ER 13:23
PROVIDERS: Student in an Organized Health Care Education/Training Program
DX: J18.9 Pneumonia, unspecified organism (principal); G47.00 Insomnia, unspecified; F25.0 Schizoaffective disorder, bipolar type; F17.210 Nicotine dependence, cigarettes, uncomplicated; Z88.0 Allergy status to penicillin; Z88.5 Allergy status to narcotic agent; Z88.8 Allergy status to other drugs, medicaments and biological substances; Z59.00 Homelessness unspecified
CPT/HCPCS: 71046; 80053; 85025; 94644; 94664; 99284-25; A9270

== ENCOUNTER 2024-03-08 07:51 | Emergency (ER) | payer OTHER ==
[~2024-03-08] VITALS: Ht 172.7 cm; Wt 72.6 kg
[~2024-03-08 07:51] MED LIST changes: +Avidoxy100 MG PO; +ONDA4 PO
[2024-03-08 08:27] VITALS: BP 116/76
[2024-03-08] MEDS ORDERED: Ibuprofen 400 MG Tab PO ONE (10:25)
[2024-03-08] MEDS ORDERED: IBUP600 PO (10:26)
== END 2024-03-08 11:18 | disposition home or self-care (01) ==
LOC: ER 07:51
DX: S46.911A Strain of unspecified muscle, fascia and tendon at shoulder and upper arm level, right arm, initial encounter (principal); R09.89 Other specified symptoms and signs involving the circulatory and respiratory systems; W01.0XXA Fall on same level from slipping, tripping and stumbling without subsequent striking against object, initial encounter; Z88.0 Allergy status to penicillin; Z88.8 Allergy status to other drugs, medicaments and biological substances; Z88.1 Allergy status to other antibiotic agents; Z88.5 Allergy status to narcotic agent; Z79.899 Other long term (current) drug therapy; G47.00 Insomnia, unspecified; F17.290 Nicotine dependence, other tobacco product, uncomplicated
CPT/HCPCS: 71046; 73030; A9270

== ENCOUNTER 2025-06-16 12:33 | Day surgery (SDC) | payer OTHER ==
[~2025-06-16] VITALS: Ht 172.7 cm; Wt 68.3 kg
[2025-06-16] MEDS ORDERED: Midazolam HCl 1MG / ML 2ML Vial ONE (12:56)
--- NOTE | 2025-06-16 14:24 | NUR ---
06/16/25 1424 Melinda Monsivais PRE-OP BLOCK COMPLETED BY DR TORRE WITH DANNYRN IN THE ROOM AND TIMEOUT COMPLETED BY DANNYRN
[2025-06-16 14:50] VITALS: BP 115/76
--- NOTE | 2025-06-16 15:02 | NUR ---
06/16/25 6617 Janie Barry FRIEND CALLED AND NOTIFIED OF PT STATUS AND TO COME TO PATIENT STIPPLER AREA
== END 2025-06-16 15:35 | disposition home or self-care (01) ==
LOC: ORSCSDS 12:33
PROVIDERS: Orthopaedic Surgery
PROC: 01N54ZZ Release Median Nerve, Percutaneous Endoscopic Approach (ICD-10-PCS; principal; 2025-06-16 14:15)
DX: G56.02 Carpal tunnel syndrome, left upper limb (principal); E78.5 Hyperlipidemia, unspecified; K21.9 Gastro-esophageal reflux disease without esophagitis; F32.A Depression, unspecified; Z87.891 Personal history of nicotine dependence
CPT/HCPCS: J2250; J7120